=== PATIENT | male | born 1960 ===

== ENCOUNTER 2020-09-29 10:57 | Emergency (ER) | payer BC ==
[2020-09-29] MEDS ORDERED: ACETAMINOPHEN TAB 500 MG TAB PO STA (11:28)
--- NOTE | 2020-09-29 12:36 | XR ---
EXAMINATION TYPE: XR chest 2V DATE OF EXAM: 09/29/2020 COMPARISON: NONE HISTORY: Shortness of breath TECHNIQUE: Frontal and lateral views of the chest are obtained. FINDINGS: Scattered senescent parenchymal changes noted. Hyperinflation compatible with COPD. No evidence for infiltrate. No evidence for atelectasis. Heart size is stable. Mediastinal structures are stable and grossly unremarkable. No evidence for hilar prominence. Degenerative changes dorsal spine. IMPRESSION: 1. No evidence for acute pulmonary disease.
--- NOTE | 2020-09-29 13:11 | ED ---
URI HPI - General Chief Complaint: Upper Respiratory Infection Stated Complaint: wants Covid test, N/V/D, fever Time Seen by Provider: 09/29/20 12:30 Source: patient, RN notes reviewed Mode of arrival: ambulatory Limitations: no limitations - History of Present Illness Initial Comments: Patient is a 60-year-old male that presents to the emergency department complaining of upper respiratory tract symptoms and fever since Sunday. He did try to take Tylenol Motrin at home with no improvement so he came to the emergency room to get tested for Covid. Patient did appear to be mildly diaphoretic but in no apparent distress or pain while sitting up in bed during the exam interview. He denied any cough, short of breath chest pain shortness of breath headache nausea vomiting diarrhea constipation fever fatigue chills - Related Data Previous Rx's Medication Instructions Recorded Ibuprofen [Motrin] 600 mg PO Q8HR PRN #30 tab 09/29/20 Allergies Allergy/AdvReac Type Severity Reaction Status Date / Time No Known Allergies Allergy Verified 09/29/20 11:24 Review of Systems ROS Statement: Those systems with pertinent positive or pertinent negative responses have been documented in the HPI. ROS Other: All systems not noted in ROS Statement are negative. Past Medical History Past Medical History: Hypertension History of Any Multi-Drug Resistant Organisms: None Reported Past Surgical History: Adenoidectomy, Tonsillectomy Past Psychological History: No Psychological Hx Reported Smoking Status: Current every day smoker Past Alcohol Use History: Occasional Past Drug Use History: None Reported General Exam Limitations: no limitations General appearance: alert, in no apparent distress, other (Mildly diaphoretic) Head exam: Present: atraumatic, normocephalic, normal inspection Eye exam: Present: normal appearance, PERRL, EOMI. Absent: scleral icterus, conjunctival injection, periorbital swelling Neck exam: Present: normal inspection Respiratory exam: Present: normal lung sounds bilaterally. Absent: respiratory distress, wheezes, rales, rhonchi, stridor Cardiovascular Exam: Present: regular rate, normal rhythm, normal heart sounds. Absent: systolic murmur, diastolic murmur, rubs, gallop, clicks GI/Abdominal exam: Present: soft, normal bowel sounds. Absent: distended, tenderness, guarding, rebound, rigid Extremities exam: Present: normal inspection, full ROM, normal capillary refill. Absent: tenderness, pedal edema, joint swelling, calf tenderness Neurological exam: Present: alert, oriented X3 Psychiatric exam: Present: normal affect, normal mood Skin exam: Present: warm, dry, intact, normal color. Absent: rash Course Vital Signs 09/29/20 11:20 Temperature 103.0 F H Pulse Rate 95 Respiratory 19 Rate Blood Pressure 122/73 O2 Sat by Pulse 94 L Oximetry Medical Decision Making - Medical Decision Making 60-year-old male complaining of fever and upper respiratory tract symptoms since Sunday preventing for Covid test. Covid test, chest x-ray ordered. 1000 mg of Tylenol given for fever. Covid test negative. Chest x-ray negative for any acute cardiopulmonary process. Case discussed with Dr. Ruby, patient discharge home with follow up primary car e and conservative management with Tylenol Motrin. - Lab Data Lab Results 09/29/20 Range/Units 12:22 Coronavirus (PCR) Not Detected (Not Detectd) - Radiology Data Radiology results: report reviewed, image reviewed Chest x-ray: No acute cardiopulmonary process. Disposition Clinical Impression: Acute upper respiratory infection Disposition: HOME SELF-CARE Condition: Stable Instructions (If sedation given, give patient instructions): Upper Respiratory Infection (ED) Additional Instructions: Please return to the Emergency Department if symptoms worsen or any other concerns. Follow-up with primary care 1-2 days. Continue take Tylenol and Motrin around the clock as needed for fever control. Increase oral fluids. Get plenty rest. Prescriptions: Ibuprofen [Motrin] 600 mg PO Q8HR PRN #30 tab PRN Reason: Pain Is patient prescribed a controlled substance at d/c from ED?: No Referrals: James Aguayo DO [Primary Care Provider] - 1-2 days Time of Disposition: 13:20
[2020-09-29 13:21] VITALS: TEMP 98.8
[2020-09-29 13:22] VITALS: BP 116/69; PULSE 78; RESP 20
== END 2020-09-29 13:27 | disposition home or self-care (01) ==
LOC: EC 10:57
DX: J06.9 Acute upper respiratory infection, unspecified (principal); Z20.822 Contact with and (suspected) exposure to COVID-19; I10 Essential (primary) hypertension; F17.200 Nicotine dependence, unspecified, uncomplicated
CPT/HCPCS: 71046; 87635; 99283

== ENCOUNTER → 2020-10-06 | Outpatient (CLI) | payer BC ==
--- NOTE | 2020-10-06 17:26 | XR ---
EXAMINATION TYPE: XR chest 2V DATE OF EXAM: 10/06/2020 COMPARISON: 09/29/2020 HISTORY: 60-year-old male pneumonia, fever TECHNIQUE: Frontal and lateral views FINDINGS: Heart upper limits of normal in size. Aorta and pulmonary vasculature within normal limits. There is some hazy density at the right base, asymmetric to the contralateral side. This correlates to the pos terior aspect of the lung on the lateral view. No pleural effusion. IMPRESSION: Interval development of a posterior right basilar pneumonia. Follow-up after treatment to ensure shanna pereira.
== END | disposition home or self-care (01) ==
LOC: RADXRMAIN 15:21
PROVIDERS: ATTEND Nurse Practitioner Family
DX: J18.9 Pneumonia, unspecified organism (principal)
CPT/HCPCS: 71046

== ENCOUNTER 2020-11-04 18:01 | Emergency (ER) | payer BC ==
[2020-11-04 18:05] VITALS: BP 141/78; PULSE 98; RESP 18; TEMP 98.2
--- NOTE | 2020-11-04 18:38 | ED ---
General Adult HPI - General Source: patient, RN notes reviewed Mode of arrival: ambulatory Limitations: no limitations <Lewis Hopson - Last Filed: 11/04/20 22:01> <Hemalatha Ruby - Last Filed: 11/05/20 00:12> - General Chief complaint: Skin/Abscess/Foreign Body Stated complaint: Blood clot, L ankle Time Seen by Provider: 11/04/20 18:11 - History of Present Illness Initial comments: 60-year-old male with a past medical history of hypertension presents to the emergency room for a chief complaint of swelling of the left leg. Patient states a couple days ago he had a pain on the left side of his ankle. However today it was swollen and red. States the swelling extends onto the foot and about midway up the calf. He does have some pain with this. It is warm to touch. No history of blood clots. No recent long trips or airplane flights. No fevers. Patient is concerned he could have a blood clot.Patient has no other complaints at this time including shortness of breath, chest pain, abdominal pain, nausea or vomiting, headache, or visual changes. (Lewis Hopson) - Related Data Home Medications Medication Instructions Recorded Confirmed Losartan Potassium [Cozaar] 25 mg PO DAILY 11/04/20 11/04/20 Previous Rx's Medication Instructions Recorded Apixaban [Eliquis Starter Pack 5 - 10 mg PO DIRECTED 30 Days 11/04/20 (for VTE)] #1 each Allergies Allergy/AdvReac Type Severity Reaction Status Date / Time No Known Allergies Allergy Verified 11/04/20 18:52 Review of Systems ROS Other: All systems not noted in ROS Statement are negative. <Lewis Hopson - Last Filed: 11/04/20 22:01> ROS Other: All systems not noted in ROS Statement are negative. <Hemalatha Ruby - Last Filed: 11/05/20 00:12> ROS Statement: Those systems with pertinent positive or pertinent negative responses have been documented in the HPI. Past Medical History Past Medical History: Hypertension History of Any Multi-Drug Resistant Organisms: None Reported Past Surgical History: Adenoidectomy, Tonsillectomy Past Psychological History: No Psychological Hx Reported Smoking Status: Current every day smoker Past Alcohol Use History: Occasional Past Drug Use History: None Reported <Lewis Hopson - Last Filed: 11/04/20 22:01> General Exam Limitations: no limitations General appearance: alert, in no apparent distress Head exam: Present: atraumatic Eye exam: Present: normal appearance, PERRL, EOMI. Absent: scleral icterus ENT exam: Present: normal exam, mucous membranes moist Neck exam: Present: normal inspection, full ROM. Absent: tenderness Respiratory exam: Present: normal lung sounds bilaterally. Absent: respiratory distress, wheezes Cardiovascular Exam: Present: regular rate, normal rhythm, normal heart sounds Extremities exam: Present: full ROM (Full range of motion of the left ankle joint), tenderness (Mild tenderness around the left calf and medial ankle), normal capillary refill (Capillary refill less than 2 seconds, DP and PT pulse 2+), calf tenderness, other (Erythema and edema noted of the mid left foot as well as circumferential ankle up to the mid calf.) <Lewis Hopson - Last Filed: 11/04/20 22:01> Course Vital Signs 11/04/20 18:02 Temperature 98.2 F Pulse Rate 98 Respiratory 18 Rate Blood Pressure 141/78 O2 Sat by Pulse 98 Oximetry Medical Decision Making - Lab Data Result diagrams: 11/04/20 20:57 11/04/20 20:57 <Lewis Hopson - Last Filed: 11/04/20 22:01> - Lab Data Result diagrams: 11/04/20 20:57 11/04/20 20:57 <Hemalatha Ruby - Last Filed: 11/05/20 00:12> - Medical Decision Making Vitals are stable. Ultrasound did reveal an occlusive thrombus in the left proximal calf regions including the left popliteal and proximal calf veins. Laboratory evaluation was initiated. Platelet count is normal. Hemoglobin is 12.1. No bleeding history. He will be seeing his doctor tomorrow. Patient started on Eliquis. He will return here for any worsening symptoms. (Lewis Hopson) I was available for consultation in the emergency department. The history and physical exam were done by the midlevel provider. I was consulted for this patients care. I reviewed the case with the midlevel provider and based on their presentation of the patient, I agree with the assessment, medical decision making and plan of care as documented. Chart was dictated using Dragon dictation software. Attempts were made to correct any dictation errors however some typographical errors may persist. Patient was seen during a national state of emergency due to the Covid-19 pandemic. (Hemalatha Ruby) - Lab Data Lab Results 11/04/20 11/04/20 Range/Units 20:57 20:57 WBC 5.8 (3.8-10.6) k/uL RBC 3.64 L (4.30-5.90) m/uL Hgb 12.1 L (13.0-17.5) gm/dL Hct 35.4 L (39.0-53.0) % MCV 97.2 (80.0-100.0) fL MCH 33.3 (25.0-35.0) pg MCHC 34.2 (31.0-37.0) g/dL RDW 13.5 (11.5-15.5) % Plt Count 208 (150-450) k/uL MPV 7.2 Neutrophils % (Manual) 49 % Band Neuts % (Manual) 2 % Lymphocytes % (Manual) 34 % Monocytes % (Manual) 11 % Eosinophils % (Manual) 4 % Neutrophils # (Manual) 2.90 (1.3-7.7) k/uL Lymphocytes # (Manual) 1.97 (1.0-4.8) k/uL Monocytes # (Manual) 0.64 (0-1.0) k/uL Eosinophils # (Manual) 0.23 (0-0.7) k/uL Nucleated RBCs 0 (0-0) /100 WBC Manual Slide Review Performed Sodium 137 (137-145) mmol/L Potassium 4.1 (3.5-5.1) mmol/L Chloride 108 H (98-107) mmol/L Carbon Dioxide 22 (22-30) mmol/L Anion Gap 7 mmol/L BUN 16 (9-20) mg/dL Creatinine 0.85 (0.66-1.25) mg/dL Est GFR (CKD-EPI)AfAm >90 (>60 ml/min/1.73 sqM) Est GFR (CKD-EPI)NonAf >90 (>60 ml/min/1.73 sqM) Glucose 96 (74-99) mg/dL Calcium 8.5 (8.4-10.2) mg/dL Total Bilirubin 0.5 (0.2-1.3) mg/dL AST 27 (17-59) U/L ALT 17 (4-49) U/L Alkaline Phosphatase 69 (38-126) U/L Total Protein 6.1 L (6.3-8.2) g/dL Albumin 3.2 L (3.5-5.0) g/dL Disposition Is patient prescribed a controlled substance at d/c from ED?: No Time of Disposition: 22:01 <Lewis Hopson - Last Filed: 11/04/20 22:01> <Hemalatha Ruby - Last Filed: 11/05/20 00:12> Clinical Impression: DVT (deep venous thrombosis) Disposition: HOME SELF-CARE Condition: Good Instructions (If sedation given, give patient instructions): Deep Vein Thrombosis (ED) Additional Instructions: Take Eliquis as directed. Please follow-up with your doctor tomorrow at your appointment. You will likely need workup from hematology as well. Return to the emergency room for any worsening symptoms. Prescriptions: Apixaban [Eliquis Starter Pack (for VTE)] 5 - 10 mg PO DIRECTED 30 Days #1 each Referrals: James Aguayo DO [Primary Care Provider] - 1-2 days
--- NOTE | 2020-11-04 20:27 | US ---
EXAMINATION TYPE: US venous doppler duplex LE LT DATE OF EXAM: 11/04/2020 7:17 PM COMPARISON: NONE CLINICAL HISTORY: edema. SIDE PERFORMED: Left TECHNIQUE: The lower extremity deep venous system is examined utilizing real time linear array sonog yehuda with graded compression, doppler sonography and color-flow sonography. VESSELS IMAGED: Common Femoral Vein Deep Femoral Vein Greater Saphenous Vein * Femoral Vein Popliteal Vein Small Saphenous Vein * Proximal Calf Veins (* superficial vessels) Left Leg: There is an occlusive thrombus in the left proximal calf region. IMPRESSION: Grayscale, color doppler, spectral doppler imaging performed of the deep veins of the le ft lower extremity. There is an occlusive thrombus in the left popliteal and proximal calf veins.
[2020-11-04 21:25] LABS: HCT 35.4 % (39.0-53.0); HGB 12.1 gm/dL (13.0-17.5); MCH 33.3 pg (25.0-35.0); MCHC 34.2 g/dL (31.0-37.0); MCV 97.2 fL (80.0-100.0); Mean Platelet Volume 7.2; Platelet Count 208 k/uL (150-450); RBC 3.64 m/uL (4.30-5.90); RDW 13.5 % (11.5-15.5); WBC 5.8 k/uL (3.8-10.6)
[2020-11-04 21:47] LABS: ALT 17 U/L (4-49); AST 27 U/L (17-59); African American GFR (CKD) >90 (>60 ml/min/1.73 sqM); Albumin 3.2 g/dL (3.5-5.0); Alkaline Phosphatase 69 U/L (38-126); Anion Gap 7 mmol/L; Blood Urea Nitrogen 16 mg/dL (9-20); Calcium 8.5 mg/dL (8.4-10.2); Carbon Dioxide 22 mmol/L (22-30); Chloride 108 mmol/L (98-107); Glucose 96 mg/dL (74-99); Non-African American GFR(CKD) >90 (>60 ml/min/1.73 sqM); Potassium 4.1 mmol/L (3.5-5.1); Sodium 137 mmol/L (137-145); Total Bilirubin 0.5 mg/dL (0.2-1.3); Total Protein 6.1 g/dL (6.3-8.2)
[2020-11-04 21:55] LABS: Band Neutrophils % 2 %; Eosinophils # (M) 0.23 k/uL (0-0.7); Lymphocytes # (M) 1.97 k/uL (1.0-4.8); Monocytes # (M) 0.64 k/uL (0-1.0); Neutrophils % (M) 49 %; Nucleated Red Blood Cells 0 /100 WBC (0-0); Total Cells Counted 100
[2020-11-04] MEDS ORDERED: APIXABAN 5 MG TAB PO STA (22:00)
== END 2020-11-04 22:13 | disposition home or self-care (01) ==
LOC: EC 18:01
DX: I82.432 Acute embolism and thrombosis of left popliteal vein (principal); I10 Essential (primary) hypertension; F17.200 Nicotine dependence, unspecified, uncomplicated; Z79.01 Long term (current) use of anticoagulants; Z90.49 Acquired absence of other specified parts of digestive tract
CPT/HCPCS: 36415; 80053; 85025; 99284

== ENCOUNTER → 2021-05-04 | Outpatient (CLI) | payer BC ==
--- NOTE | 2021-05-04 15:51 | US ---
EXAMINATION TYPE: US venous doppler duplex LE LT DATE OF EXAM: 05/04/2021 2:25 PM COMPARISON: US CLINICAL HISTORY: I82.402 acute embolism and thrombox lower extremity. F/U prior DVT left leg, pt cur rently on blood thinners SIDE PERFORMED: Left TECHNIQUE: The lower extremity deep venous system is examined utilizing real time linear array sonog yehuda with graded compression, doppler sonography and color-flow sonography. VESSELS IMAGED: Common Femoral Vein Deep Femoral Vein Greater Saphenous Vein * Femoral Vein Popliteal Vein Small Saphenous Vein * Proximal Calf Veins (* superficial vessels) Left Leg: Negative for DVT, prior DVT resolved IMPRESSION: 1. Left lower extremity ultrasound negative for deep venous thrombosis. 2. Prior left lower extremity deep venous thrombosis not present on the current exam.
== END | disposition home or self-care (01) ==
LOC: RADUSWWP 14:06
PROVIDERS: ATTEND Family Medicine
DX: I82.402 Acute embolism and thrombosis of unspecified deep veins of left lower extremity (principal)

== ENCOUNTER 2023-09-18 11:55 | Day surgery (SDC) | payer BC ==
[2023-09-13 15:47] VITALS: BMI 29.4
[2023-09-18] MEDS ORDERED: LACTATED RINGERS 1,000 ML BAG ONE (12:00)
[2023-09-18] MEDS ORDERED: LIDOCAINE 1% INJ 10MG/ML (20 ML MDV) ONE (12:40)
[2023-09-18] MEDS ORDERED: PROPOFOL 10 MG/ML 20 ML VIAL IV ONE (12:40)
--- NOTE | 2023-10-12 06:59 | P.PCN ---
Date of Procedure: 09/18/23 Procedure(s) Performed: Is an addendum to the procedure that was performed on 09/18/2023 Procedure performed colonoscopy with snare polypectomy. Procedure: The Olympus colonoscopy was inserted the rectum and gradually advanced all the way into the cecum. Careful examination was performed and the scope was gradually being withdrawn. There was a 5 mm ascending colon polyp that was removed by cold snare polypectomy. There was 1 six 1 cm hepatic flexure and descending colon polyp removed by snare polypectomy. In the rectum there were 4 polyps measuring 5 mm in size removed by cold snare polypectomy.
== END 2023-09-18 13:30 | disposition home or self-care (01) ==
LOC: ORWHC2ENDO 11:55
PROVIDERS: ATTEND Internal Medicine Gastroenterology
DX: D12.2 Benign neoplasm of ascending colon (principal); D12.3 Benign neoplasm of transverse colon; D12.4 Benign neoplasm of descending colon; K62.1 Rectal polyp; I10 Essential (primary) hypertension; Z79.899 Other long term (current) drug therapy
CPT/HCPCS: 45378; 45385; 88305